=== PATIENT | male | born 1955 | race Caucasian/White ===

== ENCOUNTER 2019-09-25 10:31 | Emergency (ER) | payer MEDICARE, OTHER ==
[~2019-09-25] VITALS: Ht 182.9 cm; Wt 90.7 kg
[~2019-09-25 10:31] MED LIST: HYDACE5 PO; HYDR1TAB94 PO; IBUP400 PO; IBUP600 PO; MELO7.5 PO; Norco 10-325 T1 EACH PO; OLME20 PO; OMEP20ER PO; Prednisone20 MG PO; RANI150 PO; SIMV40 PO; TRAM50 PO; Ultram50 MG PO; Viagra100 MG PO; Zithromax250 MG PO
[2019-09-25] MEDS ORDERED: IBUP400 PO (13:18)
[2019-09-25] MEDS ORDERED: HYDR1TAB94 PO (13:18)
[2019-09-25] MEDS ORDERED: Cyclobenzaprine5 MG PO (13:18)
== END 2019-09-25 13:53 | disposition home or self-care (01) ==
LOC: ER 10:31
DX: M54.2 Cervicalgia (principal); M25.512 Pain in left shoulder; Z88.0 Allergy status to penicillin; Z79.899 Other long term (current) drug therapy; I10 Essential (primary) hypertension; E78.5 Hyperlipidemia, unspecified; Z87.891 Personal history of nicotine dependence
CPT/HCPCS: 72040; 99283-25

== ENCOUNTER 2020-10-19 18:21 | Emergency (ER) | payer MEDICARE, OTHER ==
[~2020-10-19] VITALS: Ht 182.9 cm; Wt 81.7 kg
[~2020-10-19 18:21] MED LIST changes: +Crutch1 EACH XX; +Cyclobenzaprine5 MG PO
[2020-10-19] MEDS ORDERED: CEPH500 PO (21:35)
== END 2020-10-19 22:05 | disposition home or self-care (01) ==
LOC: ER 18:21
DX: R07.81 Pleurodynia (principal); M25.531 Pain in right wrist; L03.113 Cellulitis of right upper limb; I10 Essential (primary) hypertension; Z87.891 Personal history of nicotine dependence; Z88.0 Allergy status to penicillin; Y04.0XXA Assault by unarmed brawl or fight, initial encounter; Y92.512 Supermarket, store or market as the place of occurrence of the external cause
CPT/HCPCS: 29125; 70450; 71101; 73110; 96374-59; 99284-25; A9270; J1885; L3917

== ENCOUNTER 2022-06-18 12:57 | Observation (INO) | payer MEDICARE, OTHER ==
[~2022-06-18] VITALS: Ht 185.4 cm; Wt 90.7 kg
[~2022-06-18 12:57] MED LIST changes: +CEPH500 PO
[2022-06-18 16:01] LABS: BASOPHILS ABSOLUTE AUTO 0.02 K/mm3 (0.00-0.23); BASOPHILS PERCENT AUTO 0 % (0-2); EOSINOPHILS ABSOLUTE AUTO 0.02 K/mm3 (0.00-0.68); EOSINOPHILS PERCENT AUTO 0 % (0-6); Hemoglobin 14.7 g/dL (13.5-17.5); IMMATURE GRAN ABSOLUTE AUTO 0.04 K/mm3 (0.00-0.10); IMMATURE GRAN PERCENT AUTO 0 % (0-1); LYMPHOCYTES ABSOLUTE AUTO 1.33 K/mm3 (0.84-5.20); LYMPHOCYTES PERCENT AUTO 12 % (21-46); MONOCYTES ABSOLUTE AUTO 1.34 K/mm3 (0.16-1.47); MONOCYTES PERCENT AUTO 12 % (4-13); Mean Corpuscular HGB 33.2 pg (26.0-34.0); Mean Corpuscular HGB Conc 34.2 g/dL (31.5-36.5); Mean Corpuscular Volume 97 fL (80-100); Mean Platelet Volume 8.9 fL (9.1-12.4); NEUTROPHILS ABSOLUTE AUTO 8.77 K/mm3 (1.96-9.15); NEUTROPHILS PERCENT AUTO 76 % (41-73); Platelet Count 168 K/mm3 (150-400); RDW Coefficient Variation 12.9 % (11.7-14.2); RDW Standard Deviation 46.1 fL (35.1-46.3); Red Blood Cell Count 4.43 M/mm3 (4.30-5.90); White Blood Cell Count 11.52 K/mm3 (4.00-11.30)
[2022-06-18 16:38] LABS: Albumin, Blood 3.4 g/dL (3.4-5.0); Albumin/Globulin Ratio 0.8 (0.8-1.8); Bilirubin, Total 0.8 mg/dL (0.1-1.0); Bun/Creatinine Ratio 17.5 (12.0-20.0); Creatinine, Blood 0.74 mg/dL (0.60-1.20); Potassium, Blood 3.8 mmol/L (3.5-5.5); Thyroid Stimulating Hormone 0.506 uIU/mL (0.360-4.800); Total Protein, Blood 7.4 g/dL (6.4-8.2)
[2022-06-18 17:58] LABS: Base Excess Venous 2.3 mmol/L; Bicarbonate Venous 26.4 mmol/L (24.0-30.0); PCO2 Venous 38.9 mmHg (38-42); pH Blood Venous 7.44 (7.34-7.37)
[2022-06-18 21:57] VITALS: BP 148/90
[2022-06-18 22:21] LABS: Source, Urine Straight Cath
[2022-06-18 22:44] LABS: Appearance, Urine Clear (Clear); Bilirubin, Urine Neg (Neg); Blood, Urine 2+ (Neg); Color, Urine Pale Yellow (P-Yellow); Glucose Qualitative, Urine Neg (Neg); Ketones, Urine Neg (Neg); Leukocyte Esterase, Urine Neg (Neg); Nitrite, Urine Neg (Neg); Protein, Urine Neg (Neg); Specific Gravity, Urine 1.015 (1.003-1.022); Urobilinogen, Urine NORM (Normal)
[2022-06-18 22:45] LABS: Bacteria Few /hpf; Squamous Epithelial Cells Rare /hpf (Few); U Amphetamine Screen DETECTED; U Barbituate Screen Not Detected; U Benzodiazapine Screen Not Detected; U Buprenorphine Screen Not Detected; U Cannabinoids Screen Not Detected; U Cocaine Screen Not Detected; U Methadone Screen Not Detected; U Methamphetamine Screen DETECTED; U Opiates Screen Not Detected; U Oxycodone Screen Not Detected; U Phencyclidine Screen Not Detected; U Propoxyphene Screen Not Detected; White Blood Cells, Urine 0-2 /hpf (0-5)
[2022-06-19 00:51] VITALS: BP 141/78
[2022-06-19 05:01] VITALS: BP 145/82
--- NOTE | 2022-06-19 05:09 | NUR ---
Shift Summary Pt arrived to this unit from the ED with dx of recent falls, R knee effusion and painful R hip. Pt is on bedrest, his R knee is very painful and NWB. Pain controlled mostly with positioning on pillows as well as medication per EMAR. Pt has a strong palpable pulse on his abdomen. 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 Pt very lethargic and somnolent this evening, refuses skin assessment because he is too tired and it's painful for him to roll. He has a slight fever of 99.5 as measured by oral thermometer. Pt has a Banuelos catheter in place for incontinence and immobility, patent and draining yellow urine. Pt drinking a good amount of water, at least 1200 ml tonight. Pt mostly sleeping comfortably. VSS, AOX4
[2022-06-19 05:32] LABS: BASOPHILS ABSOLUTE AUTO 0.02 K/mm3 (0.00-0.23); BASOPHILS PERCENT AUTO 0 % (0-2); EOSINOPHILS ABSOLUTE AUTO 0.03 K/mm3 (0.00-0.68); EOSINOPHILS PERCENT AUTO 0 % (0-6); Hematocrit 43.5 % (37.0-53.0); Hemoglobin 14.8 g/dL (13.5-17.5); IMMATURE GRAN ABSOLUTE AUTO 0.03 K/mm3 (0.00-0.10); IMMATURE GRAN PERCENT AUTO 0 % (0-1); LYMPHOCYTES ABSOLUTE AUTO 1.77 K/mm3 (0.84-5.20); LYMPHOCYTES PERCENT AUTO 15 % (21-46); MONOCYTES ABSOLUTE AUTO 1.93 K/mm3 (0.16-1.47); MONOCYTES PERCENT AUTO 16 % (4-13); Mean Corpuscular HGB 33.2 pg (26.0-34.0); Mean Corpuscular Volume 98 fL (80-100); Mean Platelet Volume 9.4 fL (9.1-12.4); NEUTROPHILS ABSOLUTE AUTO 8.43 K/mm3 (1.96-9.15); NEUTROPHILS PERCENT AUTO 69 % (41-73); Platelet Count 195 K/mm3 (150-400); RDW Standard Deviation 46.5 fL (35.1-46.3); Red Blood Cell Count 4.46 M/mm3 (4.30-5.90); White Blood Cell Count 12.21 K/mm3 (4.00-11.30)
--- NOTE | 2022-06-19 05:34 | NUR ---
Shift Summary Pt c/o sharp pain in both feet r/t recent amputation, medicated per emar. NWB on both feet while waiting for doctor's ok to talk again. Dressing on feet are C/D/I. Eggcrate mattress placed on bed to accomodate wound on pt's coccyx. Coccyx wound purple with no drainage at this time, Mepilex in place. AOx4, VSS, pleasant and cooperative.
[2022-06-19 05:48] LABS: Bun/Creatinine Ratio 18.9 (12.0-20.0); Calcium, Blood 8.9 mg/dL (8.5-10.1); Creatinine, Blood 0.79 mg/dL (0.60-1.20); Magnesium, Blood 2.2 mg/dL (1.6-2.4); Potassium, Blood 3.9 mmol/L (3.5-5.5)
[2022-06-19 07:39] VITALS: BP 151/90
[2022-06-19 07:41] VITALS: BP 150/90
--- NOTE | 2022-06-19 14:37 | NUR ---
NOTE PENDING ORTHO CONSULT. PT RESTING QUIETLY. TRAN PATENT. DRAINING A LARGE AMOUNT OF URINE. PT HAS HIS RIGHT LEG PROPED ON PILLOWS FOR COMFORT. MEDCIATED WITH ROXICODONE AND TYLENOL THIS MORING. HE SLEPT HARD FOR MOST OF THE MORING. HE WOULD AWAKEN EASILY. THEN FALL BACK TO SLEEP. RESP EVEN UNLABORED. CONTINUE POC.
[2022-06-19 15:18] VITALS: BP 125/81
--- NOTE | 2022-06-19 17:43 | NUR ---
Met with pt today, and he was unable to give much personal information. He was able to hand me the phone when his S/O Breanna called today, and her number is [phone]. Per pt's request, removed daughter Trish's (incorrect) phone number and replaced it with Breanna's number. Breanna states she and the pt would like to move into assisted Living if it's a possibility, as she states they are both physically unable to care for themselves any longer. Will pass the information to chiropractic care in the am. Plan to discuss code status with pt tomorrow. He is currently eating dinner.
[2022-06-19 19:29] LABS: BODY FLUID RBC 0.019 M/mm3 (0-0)
[2022-06-19 19:32] LABS: Body Fluid Crystals POS (NEGATIVE)
[2022-06-19 19:40] LABS: RBC Count, Synovial Fluid 19000 /mm3 (0-0); WBC Count, Synovial Fluid 27176 /mm3 (0-180)
[2022-06-19 19:48] VITALS: BP 149/91
[2022-06-19 19:51] LABS: Appearance, Synovial Fluid Cloudy (Clear); Color, Synovial Fluid Dark Yellow (None-P Yel)
[2022-06-19 20:16] LABS: Monocytes/Macrophages, Synovia 5 % (0-65); Neutrophils, Synovial Fluid 95 % (0-24)
[2022-06-20 06:16] VITALS: BP 119/85
--- NOTE | 2022-06-20 07:08 | NUR ---
Shift Summary Pt NPO since 0000 for possible procedure on R knee today. Banuelos in place and patent, draining fartun urine. On bedrest. Medicated per EMAR once for R knee pain. Pain is relieved mostly by positioning. AOx4, somnolent with soft speech. VSS, pleasant and cooperative. Slept well t/o the night.
[2022-06-20 07:23] VITALS: BP 117/79
[2022-06-20] MEDS ORDERED: PANT20 PO (11:45)
[2022-06-20] MEDS ORDERED: MIRALAX17 GM PO (11:46)
[2022-06-20] MEDS ORDERED: PRED20 PO (11:47)
[2022-06-20] MEDS ORDERED: NAPROXEN250 M1 PO (11:49)
--- NOTE | 2022-06-20 17:43 | NUR ---
SHIFT SUMMARY- PT IS A/O, PLESANT AND COOPERATIVE. DISCHARGE PENDING THIS AFTERNOON. PT WORKED WITH PT AND RECOMENDED SNF. PT DISCUSSED THIS WITH FAMILY SOME DISCUSSION BETWEEN GIRLFRIEND AND DAUGHTER ABOUT GOING HOME VS GOING TO SNF UNDECIDED AT THIS TIME. HIS BED IS IN THE LOW POSITION AND CALL LIGHT IS WITIN REACH. TRAN IS PATIENT AND DRAINING.
[2022-06-20 20:21] VITALS: BP 109/78
--- NOTE | 2022-06-21 05:03 | NUR ---
SUMMARY: NO ACUTE EVENTS OVERNIGHT. VSS. CALL LIGHT IN REACH. TRAN IN PLACE. PATIENT RESTED WELL OVERNIGHT. POSSIBLE DC TODAY TO [facility].
[2022-06-21 05:12] VITALS: BP 126/87
[2022-06-21 07:23] VITALS: BP 123/81
--- NOTE | 2022-06-21 10:38 | NUR ---
PATIENT WORKED WITH OT, AMBULATED TO BATHROOM AND BACK, PUT PANTS AND SOCKS ON AND OFF, TRAN CATHETER TO REMOVED, NO ACUTE CHANGES, NO DISTRESS, CALL LIGHT WITH IN REACH
[2022-06-21 17:00] VITALS: BP 115/71
--- NOTE | 2022-06-21 19:32 | NUR ---
NO ACUTE CHANGES, TRAN REMOVED, PATIENT HAS VOIDED. PLAN FOR [facility]. REPORTED TO PM RN, CALL LIGHT WITH IN REACH
[2022-06-21 19:36] VITALS: BP 119/75
[2022-06-22 02:04] VITALS: BP 128/84
--- NOTE | 2022-06-22 05:22 | NUR ---
SHIFT SUMMARY PT PARTICIPATED IN BEDSIDE REPORT AT BEGINNING OF SHIFT- PT URINATED MULTIPLE TIMES T/O SHIFT- MARC Barillas/Ann 06/21/22 DAYSHIFT- MEDICATED PT FOR RIGHT KNEE PAIN IN SHIFT- PT SAT UP IN BED AND ATE SANDWICH FOR SNACK- REQUESTED PT TO CALL FOR HELP WHEN WANTING TO AMBULATE IN ROOM- PT STATED UNDERSTANDING, BED LOW POSITION, CALL LIGHT WITHIN REACH, BED ALARM IN PLACE
[2022-06-22 07:16] VITALS: BP 115/77
[2022-06-22 11:02] LABS: Influenza A, PCR NEGATIVE (NEGATIVE); Influenza B, PCR NEGATIVE (NEGATIVE); Resp Syncytial Virus, PCR NEGATIVE (NEGATIVE); SARS-Cov-2 (COVID-19) PCR, MMC NEGATIVE (NEGATIVE)
[2022-06-22] MEDS ORDERED: TAMS.4ER PO (12:08)
[2022-06-22] MEDS ORDERED: FLUTICASONE-SA1 EAC1 INH (12:09)
--- NOTE | 2022-06-22 13:00 | NUR ---
DISCHARGE NOTE: PT TRANSFERING TO [facility] FOR PT/OT, REPORT GIVEN TO GARY JUNIOR AT 1230. PT DRESSED AND PACKED PERSONAL BELONGINGS INDEPENDANTLY. PT HAD NO IV ACCESS AND HARD SCRIPT FOR OXYCODONE PLACED IN PACKET. PT TRANPORTED VIA WC BY LEARNING OFFICER TO [facility].
== END 2022-06-22 13:11 ==
LOC: ER 12:57 → MEDS 18:51 → ENPENDDIS 06-20 15:36 → MEDS 06-22 13:11
PROVIDERS: Emergency Medicine; Family Medicine; Orthopaedic Surgery; ADMIT Internal Medicine
PROC: 0S9C3ZZ Drainage of Right Knee Joint, Percutaneous Approach (ICD-10-PCS; principal; 2022-06-20)
DX: M25.461 Effusion, right knee (principal); J44.9 Chronic obstructive pulmonary disease, unspecified; F12.10 Cannabis abuse, uncomplicated; I10 Essential (primary) hypertension; E78.5 Hyperlipidemia, unspecified; K21.9 Gastro-esophageal reflux disease without esophagitis; Z87.891 Personal history of nicotine dependence; Z88.0 Allergy status to penicillin; Z20.822 Contact with and (suspected) exposure to COVID-19
CPT/HCPCS: 0241U; 36415; 51702; 71045; 71275; 72100; 73502; 73560-RT; 73700; 74175; 80048; 80053; 81001; 82803; 83735; 83880; 84443; 84484; 85025; 87070; 87075; 87205; 89051; 89060; 93005; 93010; 94760; 97110; 97110-CQ; 97162; 97530; 99285-25; A9270; C9113; G0378; J1650; J7120; J7512; Q9967

== ENCOUNTER 2023-01-30 15:33 | Emergency (ER) | payer MEDICARE, OTHER ==
[~2023-01-30] VITALS: Ht 182.9 cm; Wt 81.7 kg
[~2023-01-30 15:33] MED LIST changes: +FLUTICASONE-SA1 EAC1 INH; +MIRALAX17 GM PO; +NAPROXEN250 M1 PO; +PANT20 PO; +PRED20 PO; +TAMS.4ER PO
[2023-01-30 15:58] LABS: BASOPHILS ABSOLUTE AUTO 0.02 K/mm3 (0.00-0.23); BASOPHILS PERCENT AUTO 0 % (0-2); EOSINOPHILS ABSOLUTE AUTO 0.11 K/mm3 (0.00-0.68); EOSINOPHILS PERCENT AUTO 1 % (0-6); Hematocrit 42.8 % (37.0-53.0); Hemoglobin 14.6 g/dL (13.5-17.5); IMMATURE GRAN ABSOLUTE AUTO 0.04 K/mm3 (0.00-0.10); IMMATURE GRAN PERCENT AUTO 0 % (0-1); LYMPHOCYTES ABSOLUTE AUTO 2.04 K/mm3 (0.84-5.20); LYMPHOCYTES PERCENT AUTO 17 % (21-46); MONOCYTES ABSOLUTE AUTO 1.29 K/mm3 (0.16-1.47); MONOCYTES PERCENT AUTO 11 % (4-13); Mean Corpuscular HGB Conc 34.1 g/dL (31.5-36.5); Mean Corpuscular Volume 100 fL (80-100); NEUTROPHILS PERCENT AUTO 70 % (41-73); Platelet Count 197 K/mm3 (150-400); RDW Coefficient Variation 13.3 % (11.7-14.2); RDW Standard Deviation 49.1 fL (35.1-46.3); Red Blood Cell Count 4.29 M/mm3 (4.30-5.90)
[2023-01-30 16:29] LABS: Albumin/Globulin Ratio 0.6 (0.8-1.8); Bilirubin, Total 0.5 mg/dL (0.1-1.0); Bun/Creatinine Ratio 21.5 (12.0-20.0); Calcium, Blood 9.2 mg/dL (8.5-10.1); Creatinine, Blood 0.79 mg/dL (0.60-1.20); Globulin, Blood 4.9 g/dL (2.2-4.0); Total Protein, Blood 7.9 g/dL (6.4-8.2)
[2023-01-30 17:24] LABS: Source, Urine Clean Catch
[2023-01-30 17:29] LABS: Appearance, Urine Cloudy (Clear); Bilirubin, Urine Neg (Neg); Blood, Urine 5+ (Neg); Color, Urine Yellow (P-Yellow); Glucose Qualitative, Urine Neg (Neg); Ketones, Urine Neg (Neg); Leukocyte Esterase, Urine 3+ (Neg); Nitrite, Urine Pos (Neg); Protein, Urine 2+ (Neg); Specific Gravity, Urine 1.025 (1.003-1.022); Urobilinogen, Urine NORM (Normal)
[2023-01-30 17:42] LABS: Hyaline Casts 0-2 /lpf (0-2); Red Blood Cells, Urine 25-50 /hpf (0-2); Squamous Epithelial Cells Not Seen /hpf (Few); White Blood Cells, Urine 25-50 /hpf (0-5)
[2023-01-30 17:43] LABS: Bacteria Many /hpf
[2023-01-30] MEDS ORDERED: Bactrim Ds Tab1 EACH PO (18:07)
[2023-01-30 18:16] VITALS: BP 126/83
== END 2023-01-30 18:15 | disposition home or self-care (01) ==
LOC: ER 15:33
PROVIDERS: Student in an Organized Health Care Education/Training Program
DX: N39.0 Urinary tract infection, site not specified (principal); I10 Essential (primary) hypertension; E78.5 Hyperlipidemia, unspecified; Z88.0 Allergy status to penicillin; Z79.52 Long term (current) use of systemic steroids; Z79.51 Long term (current) use of inhaled steroids; Z79.899 Other long term (current) drug therapy; Z87.891 Personal history of nicotine dependence
CPT/HCPCS: 80053; 81001; 83690; 85025; 87077; 87086; 87186; 99283; A9270

== ENCOUNTER 2023-07-07 12:25 | Emergency (ER) | payer OTHER, MEDICARE ==
[~2023-07-07] VITALS: Ht 182.9 cm; Wt 90.7 kg
[~2023-07-07 12:25] MED LIST changes: +Bactrim Ds Tab1 EACH PO
[2023-07-07 12:41] VITALS: BP 125/79
[2023-07-07 13:24] LABS: BASOPHILS ABSOLUTE AUTO 0.03 K/mm3 (0.00-0.23); BASOPHILS PERCENT AUTO 0 % (0-2); EOSINOPHILS ABSOLUTE AUTO 0.09 K/mm3 (0.00-0.68); EOSINOPHILS PERCENT AUTO 1 % (0-6); Hematocrit 45.6 % (37.0-53.0); IMMATURE GRAN ABSOLUTE AUTO 0.04 K/mm3 (0.00-0.10); IMMATURE GRAN PERCENT AUTO 0 % (0-1); LYMPHOCYTES ABSOLUTE AUTO 2.09 K/mm3 (0.84-5.20); LYMPHOCYTES PERCENT AUTO 17 % (21-46); MONOCYTES ABSOLUTE AUTO 1.19 K/mm3 (0.16-1.47); MONOCYTES PERCENT AUTO 10 % (4-13); Mean Corpuscular HGB 33.3 pg (26.0-34.0); Mean Corpuscular HGB Conc 32.9 g/dL (31.5-36.5); Mean Corpuscular Volume 101 fL (80-100); Mean Platelet Volume 8.7 fL (9.1-12.4); NEUTROPHILS ABSOLUTE AUTO 8.74 K/mm3 (1.96-9.15); NEUTROPHILS PERCENT AUTO 72 % (41-73); Platelet Count 222 K/mm3 (150-400); RDW Standard Deviation 48.8 fL (35.1-46.3); Red Blood Cell Count 4.51 M/mm3 (4.30-5.90); White Blood Cell Count 12.18 K/mm3 (4.00-11.30)
[2023-07-07 13:47] LABS: Albumin, Blood 3.3 g/dL (3.4-5.0); Albumin/Globulin Ratio 0.7 (0.8-1.8); Bilirubin, Total 0.9 mg/dL (0.1-1.0); Bun/Creatinine Ratio 24.5 (12.0-20.0); Calcium, Blood 9.6 mg/dL (8.5-10.1); Creatinine, Blood 0.78 mg/dL (0.60-1.20); Globulin, Blood 4.5 g/dL (2.2-4.0); Potassium, Blood 4.5 mmol/L (3.5-5.5); Total Protein, Blood 7.8 g/dL (6.4-8.2)
[2023-07-07] MEDS ORDERED: Cephalexin Monohydrate 500 MG Cap PO ONE (14:10)
[2023-07-07] MEDS ORDERED: CEPH500 PO (14:10)
== END 2023-07-07 14:20 | disposition home or self-care (01) ==
LOC: ER 12:25
PROVIDERS: Physician Assistant
DX: L03.116 Cellulitis of left lower limb (principal); Z87.891 Personal history of nicotine dependence; I10 Essential (primary) hypertension; E78.5 Hyperlipidemia, unspecified; K21.9 Gastro-esophageal reflux disease without esophagitis
CPT/HCPCS: 80053; 85025; 99282; A9270

== ENCOUNTER 2024-07-30 22:52 | Emergency (ER) | payer OTHER, MEDICARE ==
[~2024-07-30] VITALS: Ht 188 cm; Wt 72.6 kg
[2024-07-30 22:55] VITALS: BP 167/106
[2024-07-30 23:22] LABS: BASOPHILS ABSOLUTE AUTO 0.02 K/mm3 (0.00-0.23); BASOPHILS PERCENT AUTO 0 % (0-2); EOSINOPHILS ABSOLUTE AUTO 0.12 K/mm3 (0.00-0.68); EOSINOPHILS PERCENT AUTO 2 % (0-6); Hematocrit 40.5 % (37.0-53.0); Hemoglobin 13.4 g/dL (13.5-17.5); IMMATURE GRAN PERCENT AUTO 0 % (0-1); LYMPHOCYTES ABSOLUTE AUTO 2.39 K/mm3 (0.84-5.20); LYMPHOCYTES PERCENT AUTO 46 % (21-46); MONOCYTES ABSOLUTE AUTO 0.78 K/mm3 (0.16-1.47); MONOCYTES PERCENT AUTO 15 % (4-13); Mean Corpuscular HGB 32.1 pg (26.0-34.0); Mean Corpuscular HGB Conc 33.1 g/dL (31.5-36.5); Mean Corpuscular Volume 97 fL (80-100); Mean Platelet Volume 9.1 fL (9.1-12.4); NEUTROPHILS ABSOLUTE AUTO 1.86 K/mm3 (1.96-9.15); NEUTROPHILS PERCENT AUTO 36 % (41-73); Platelet Count 163 K/mm3 (150-400); RDW Coefficient Variation 13.2 % (11.7-14.2); RDW Standard Deviation 47.3 fL (35.1-46.3); Red Blood Cell Count 4.17 M/mm3 (4.30-5.90); White Blood Cell Count 5.17 K/mm3 (4.00-11.30)
[2024-07-30 23:36] LABS: International Normalized Ratio 1.06; Prothrombin Time Results 11.3 Sec (9.7-11.5)
[2024-07-30 23:45] LABS: Ethanol (Alcohol), Blood, Med <3 mg/dL
[2024-07-30 23:46] LABS: Alanine Aminotransfer (ALT/SGP 20 U/L (12-78); Albumin/Globulin Ratio 0.8 (0.8-1.8); Alk Phos 136 U/L (50-136); Anion Gap 6 mmol/L (3-11); Aspartate Aminotrans (AST/SGOT 18 U/L (12-37); Bilirubin, Total 0.4 mg/dL (0.1-1.0); Blood Urea Nitrogen 15 mg/dL (8-24); Bun/Creatinine Ratio 16.8 (12.0-20.0); CO2, Blood 27 mmol/L (21-32); Calcium, Blood 8.4 mg/dL (8.5-10.1); Chloride, Blood 108 mmol/L (98-108); Globulin, Blood 3.8 g/dL (2.2-4.0); Glomerular Filtration Rate 92 (60-); Glucose, Blood 111 mg/dL (70-99); Potassium, Blood 3.7 mmol/L (3.5-5.5); Sodium, Blood 137 mmol/L (136-145); Total Protein, Blood 6.8 g/dL (6.4-8.2)
[2024-07-30] MEDS ORDERED: Metoclopramide HCl 5MG / ML 2ML Vial IV ONE (23:50)
[2024-07-30] MEDS ORDERED: NS 1,000 ML IV SCH (23:50)
[2024-07-30] MEDS ORDERED: Ketorolac Tromethamine 30mg Vial IV ONE (23:50)
[2024-07-30 23:59] LABS: Source, Urine Clean Catch
[2024-07-31 00:09] LABS: Appearance, Urine Clear (Clear); Bilirubin, Urine Neg (Neg); Blood, Urine 1+ (Neg); Color, Urine Yellow (P-Yellow); Glucose Qualitative, Urine Neg (Neg); Ketones, Urine Neg (Neg); Leukocyte Esterase, Urine Neg (Neg); Nitrite, Urine Neg (Neg); Protein, Urine Neg (Neg); Specific Gravity, Urine 1.015 (1.003-1.022); Urobilinogen, Urine NORM (Normal)
[2024-07-31] MEDS ORDERED: Diphth,Pertuss(Acell),Tet Vac 0.5 ML VIAL IM ONE ×2 (00:15→06:05)
[2024-07-31 00:21] LABS: U Amphetamine Screen DETECTED; U Barbituate Screen Not Detected; U Benzodiazapine Screen Not Detected; U Buprenorphine Screen Not Detected; U Cannabinoids Screen Not Detected; U Cocaine Screen Not Detected; U Methadone Screen Not Detected; U Methamphetamine Screen DETECTED; U Opiates Screen Not Detected; U Oxycodone Screen Not Detected; U Phencyclidine Screen Not Detected
[2024-07-31 00:28] LABS: Bacteria Few /hpf; Red Blood Cells, Urine 0-2 /hpf (0-2); Squamous Epithelial Cells Few /hpf (Few); White Blood Cells, Urine 0-2 /hpf (0-5)
[2024-07-31] MEDS ORDERED: Aspir 8181 MG PO (07:10)
[2024-07-31] MEDS ORDERED: ATOR20 PO (07:10)
[2024-07-31] MEDS ORDERED: Prinivil10 MG PO (07:10)
== END 2024-07-31 07:32 | disposition home or self-care (01) ==
LOC: ER 22:52
PROVIDERS: Student in an Organized Health Care Education/Training Program
DX: S01.81XA Laceration without foreign body of other part of head, initial encounter (principal); S51.011A Laceration without foreign body of right elbow, initial encounter; S61.412A Laceration without foreign body of left hand, initial encounter; S30.1XXA Contusion of abdominal wall, initial encounter; S25.09XA Other specified injury of thoracic aorta, initial encounter; I71.40 Abdominal aortic aneurysm, without rupture, unspecified; V89.2XXA Person injured in unspecified motor-vehicle accident, traffic, initial encounter; F15.90 Other stimulant use, unspecified, uncomplicated; I10 Essential (primary) hypertension; E78.5 Hyperlipidemia, unspecified; Z87.891 Personal history of nicotine dependence
CPT/HCPCS: 12015; 70450; 71260; 72125; 74177; 80053; 80320; 81001; 83690; 85025; 85610; 90471; 90715; 93005; 93010; 96374; 96375; 99285-25; J1885; J2765; J7030; Q9967

== ENCOUNTER 2024-08-04 15:57 | Emergency (ER) | payer OTHER, MEDICARE ==
[~2024-08-04] VITALS: Ht 185.4 cm; Wt 85.7 kg
[~2024-08-04 15:57] MED LIST changes: +ATOR20 PO; +Aspir 8181 MG PO; +Prinivil10 MG PO
[2024-08-04 17:30] VITALS: BP 131/88
[2024-08-04] MEDS ORDERED: IBUP600 PO (18:57)
[2024-08-04] MEDS ORDERED: HYDROCODONE-AC1 EA10 PO (18:57)
== END 2024-08-04 19:15 | disposition home or self-care (01) ==
LOC: ER 15:57
DX: S01.81XA Laceration without foreign body of other part of head, initial encounter (principal); M25.532 Pain in left wrist; I10 Essential (primary) hypertension; E78.5 Hyperlipidemia, unspecified; K21.9 Gastro-esophageal reflux disease without esophagitis; Z87.891 Personal history of nicotine dependence; Z79.82 Long term (current) use of aspirin; Z79.899 Other long term (current) drug therapy; V89.2XXA Person injured in unspecified motor-vehicle accident, traffic, initial encounter
CPT/HCPCS: 70450; 73110; 99284-25